=== PATIENT | male | born 1980 | race Hispanic/Latino ===

== ENCOUNTER 2017-05-25 20:49 | Emergency (ER) | payer SELFPAY ==
[2017-05-25 21:12] LABS: BASOPHILS % (AUTO) 0.5 % (0.0-5.0); EOSINOPHILS % (AUTO) 3.3 % (0.0-8.0); HEMATOCRIT 39.1 % (42-54); MEAN CORPUSCULAR HEMOGLOBIN 32.7 pg (27.0-33.0); MEAN CORPUSCULAR HGB CONC 34.3 g/dL (32.0-36.0); MEAN CORPUSCULAR VOLUME 95.2 fL (79-99); MONOCYTES % (AUTO) 6.2 % (3.0-13.0); NUCLEATED RED BLOOD CELLS 0.1 % (0.0-0.19); PLATELET COUNT (AUTO) 314 K/uL (130-400); RED BLOOD CELL COUNT(AUTO) 4.11 MIL/uL (4.50-6.20); RED CELL DISTRIBUTION WIDTH 13.8 % (11.0-15.5); WHITE BLOOD COUNT (AUTO) 9.8 K/uL (4.8-10.8)
[2017-05-25] MEDS ORDERED: ASPIRIN 325 MG TABLET ONE (21:17)
[2017-05-25 21:24] LABS: CARBON DIOXIDE 29 mmol/L (21-32); CHLORIDE 102 mmol/L (101-111); CREATININE 0.8 mg/dL (0.5-1.5); GLOMERULAR FILTR. RATE CALC 117 mL/min (>60); GLUCOSE,RANDOM 114 mg/dL (70-105); POTASSIUM 3.7 mmol/L (3.5-5.1); SODIUM SERUM 138 mmol/L (136-145); UREA NITROGEN, BLOOD 8 mg/dL (7-18)
[2017-05-25 21:27] LABS: INR 0.9 (0.85-1.15); PROTHROMBIN TIME 9.5 SEC (9.6-11.6)
[2017-05-25 21:29] LABS: APPEARANCE,URINE Clear (CLEAR); BILIRUBIN,URINE Negative (NEGATIVE); COLOR,URINE Yellow (YELLOW); GLUCOSE, URINE (UA) Negative (NEGATIVE); KETONES,URINE Negative (NEGATIVE); LEUKOCYTE ESTERASE ,URINE Negative (NEGATIVE); NITRATE,URINE Negative (NEGATIVE); OCCULT BLOOD,URINE Trace (NEGATIVE); PH,URINE 7.5 (5.0-8.0); PROTEIN,URINE Negative (NEGATIVE); UROBILINOGEN,URINE 0.2 mg/dL (0.2-1.0)
[2017-05-25 21:37] LABS: AMPHET/METH SCREEN,URINE NEGATIVE (NEGATIVE); BACTERIA,URINE None Seen /HPF (None Seen); BARBITURATE SCREEN, URINE NEGATIVE (NEGATIVE); BENZODIAZEPINES SCREEN,URINE NEGATIVE (NEGATIVE); CANNABINOID SCREEN,URINE POSITIVE (NEGATIVE); COCAINE SCREEN,URINE NEGATIVE (NEGATIVE); OPIATE SCREEN,URINE NEGATIVE (NEGATIVE); PHENCYCLIDINE SCREEN,URINE NEGATIVE (NEGATIVE); RBC,URINE 0-1 /HPF (0-1); WBC,URINE None Seen /HPF (0-1)
[2017-05-25 21:38] LABS: SQUAMOUS EPITHELIAL CELL,UR None Seen /LPF (0-2)
[2017-05-25 21:38] LABS: ALANINE AMINOTRANSFERASE 162 U/L (12-78); ALBUMIN 3.3 g/dL (3.5-5.0); ASPARTATE AMINOTRANSFERASE 123 U/L (10-37); BILIRUBIN,TOTAL 0.2 mg/dL (0.2-1.0); CREATINE KINASE MB < 0.5 ng/mL (0.5-3.6); CREATINE KINASE, TOTAL 121 U/L (21-232); TOTAL PROTEIN, SERUM 6.9 g/dL (6.0-8.3)
[2017-05-25 21:40] LABS: AMYLASE 24 U/L (25-115); LIPASE 200 U/L (114-286)
[2017-05-25] MEDS ORDERED: KETOROLAC TROMETHAMINE 30MG/ML ONE (22:34)
== END 2017-05-25 23:09 | disposition home or self-care (01) ==
LOC: EDH 20:49
DX: R10.12 Left upper quadrant pain (principal); R11.0 Nausea; Z72.0 Tobacco use; Z88.5 Allergy status to narcotic agent
CPT/HCPCS: 36415; 71045; 74176; 80053; 80305; 81001; 82150; 82550; 82553; 83690; 85025; 85610; 85730; 93005; 96374; 99285; J1885

== ENCOUNTER 2023-01-12 13:55 | Emergency (ER) | payer OTHER ==
[~2023-01-12] VITALS: Ht 167.6 cm; Wt 108.9 kg
[2023-01-12] MEDS ORDERED: TRIAMCINOLONE ACETONIDE 40 MG/ML 1ML VIAL IM STA (14:56)
[2023-01-12] MEDS ORDERED: KETOROLAC 30MG VIAL (30MG/ML) IM STA (14:56)
[2023-01-12] MEDS ORDERED: ORPHENADRINE CITRATE 30 MG/ML ML IM STA (14:56)
[2023-01-12] MEDS ORDERED: DIPH,PERTUSS(ACELL),TET VAC/PF 0.5 ML VIAL IM ONE (15:00)
[2023-01-12] MEDS ORDERED: METH-662 PO (16:04)
[2023-01-12] MEDS ORDERED: NAPR-1084 PO (16:04)
[2023-01-12 16:24] VITALS: BP 117/64; PULSE 78; RESP 18; O2SAT 98
== END 2023-01-12 16:24 | disposition home or self-care (01) ==
LOC: EDH 13:55
DX: S33.5XXA Sprain of ligaments of lumbar spine, initial encounter (principal); K59.00 Constipation, unspecified; Z98.890 Other specified postprocedural states; Z88.5 Allergy status to narcotic agent; X58.XXXA Exposure to other specified factors, initial encounter; Y93.89 Activity, other specified; Y92.89 Other specified places as the place of occurrence of the external cause; Y99.8 Other external cause status
CPT/HCPCS: 99284; 72100; 96372 ×3; J3301; J1885; J2360

== ENCOUNTER 2024-07-29 14:12 | Emergency (ER) | payer OTHER ==
[~2024-07-29] VITALS: Ht 170.2 cm; Wt 113.4 kg
[~2024-07-29 14:12] MED LIST: METH-662 PO; NAPR-1084 PO
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
[2024-07-29] MEDS: ketOROlac 60 MG VIAL (30MG/ML) IM SCH (14:30)
[2024-07-29] MEDS: dexaMETHasone SOD PHOSPHATE 4 MG/ML 1ML VIAL IM ONE (14:30)
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
[2024-07-29] MEDS ORDERED: IBUP-2077 PO (16:47)
[2024-07-29] MEDS ORDERED: CYCL-309 PO (16:47)
[2024-07-29 17:56] VITALS: BP 134/86; PULSE 74; RESP 18; TEMP 98; O2SAT 99
== END 2024-07-29 17:57 | disposition home or self-care (01) ==
LOC: EDH 14:12
DX: S39.012A Strain of muscle, fascia and tendon of lower back, initial encounter (principal); S29.012A Strain of muscle and tendon of back wall of thorax, initial encounter; S70.02XA Contusion of left hip, initial encounter; Z88.5 Allergy status to narcotic agent; Z98.890 Other specified postprocedural states; V89.2XXA Person injured in unspecified motor-vehicle accident, traffic, initial encounter; Y93.89 Activity, other specified; Y92.488 Other paved roadways as the place of occurrence of the external cause; Y99.8 Other external cause status
CPT/HCPCS: 72070; 72100; 73502; 99284